=== PATIENT | female | born 1960 | race Caucasian/White ===

== ENCOUNTER → 2018-05-23 | Outpatient (CLI) | payer OTHER ==
[~2018-05-23] MED LIST: ALPR0.5T10 PO; AMLO10TA6 PO; AMLO1CAP12 PO; ANAS1TAB PO; ASPI-496 PO; CEFD300C37 PO; ESCI20TA10 PO; FLUT15.88 NAS; GABA300C10 PO; HYDR-3240 PO; LOVA20TA2 PO; METF500T17 PO; METH750T2 PO; SPIR25TA5 PO; Vitamin D2 PO; ZOLP5TAB6 PO
== END | disposition home or self-care (01) ==
LOC: CFH 11:54
PROVIDERS: ATTEND Internal Medicine
DX: M85.88 Other specified disorders of bone density and structure, other site (principal); N95.9 Unspecified menopausal and perimenopausal disorder
CPT/HCPCS: 77080